=== PATIENT | female | born 1970 | race African-American/Black ===

== ENCOUNTER → 2018-09-30 | Outpatient (CLI) | payer BC ==
--- NOTE | 2018-09-30 17:14 | PCVCIMAG ---
APPROVED REPORT Study performed: 09/30/2018 15:55:53 Exam: Stress Echocardiogram Indication: pre op clearance, Chest pain, Renal diease Patient Location: Echo lab Stress Nurse: Rosina Vitale RN Status: routine Ht: 5 ft 4 in HR: 88 bpm BP: 120/70 mmHg Rhythm: NSR Medical History Medical History: Lupus, Rheumatoid arthiritis, breast cancer Procedure The patient underwent an Exercise Stress Test using the Donald Protocol. Blood pressure, heart rate, and EKG were monitored. An Echocardiogram was performed by film technician in four stages in quad fashion. At peak stress, four selected images were obtained and placed side by side with resting images for comparison. Stress Test Details Stress Test: Exercise stress testing was performed using a Donald protocol. HR Resting HR: 88 bpmMax Heart Rate (APMHR): 175 bpm Max HR Achieved: 169 bpmTarget HR (85% APMHR): 148 bpm % of APMHR: 96 Recovery HR: 110 bpm HR response to stress: Accelerated HR response to stress BP Resting BP: 120/70 mmHg Max BP: 152/70 mmHg Recovery BP: 124/78 mmHg BP response to stress: Normal blood pressure response to stress. ECG Resting ECG: Sinus Rhythm Stress ECG: Sinus Tachycardia Arrhythmia: VPC's Recovery ECG: Sinus Rhythm Clinical Reason for Termination: Maximal effort Exercise duration: 6 min sec Highest Stage Achieved: Stage 2: 2.5 mph at 12% grade. Exercise capacity: 7.00 METs Overall Exercise Capacity for Age: Poor Pre-Stress Echo The resting Echocardiogram showed normal left ventricular contractility with an estimated Ejection Fraction of about 55-60%. Normal wall motion in all segments on baseline images. Post-Stress Echo The stress Echocardiogram showed normal left ventricular contractility with an estimated Ejection Fraction of about 60-65%. Normal augmentation of wall motion in all segments on post stress images. Clinical No clinical or ECG evidence for ischemia. Conclusion Clinical Response: Non-ischemic Exercise Capacity: Below Average Stress ECG Response: Non-ischemic Stress Echo Images: Ischemic The left ventricle is normal in size and wall thickness in both the rest and stress images. Other Information Study Quality: Good <Conclusion> The left ventricle is normal in size and wall thickness in both the rest and stress images.
== END | disposition home or self-care (01) ==
LOC: PCVCIMAG 15:33
PROVIDERS: ATTEND Internal Medicine Cardiovascular Disease
DX: Z01.818 Encounter for other preprocedural examination (principal); R07.9 Chest pain, unspecified; N28.9 Disorder of kidney and ureter, unspecified
CPT/HCPCS: 93325; 93351